=== PATIENT | female | born 1960 ===

== ENCOUNTER 2021-06-06 08:35 | Outpatient (CLI) | payer OTHER | END 2021-06-06 08:36 | disposition home or self-care (01) | LOC: BICMRI 08:35 | PROVIDERS: ATTEND Family Medicine | DX: R29.898 Other symptoms and signs involving the musculoskeletal system (principal); R20.2 Paresthesia of skin; M51.36 Other intervertebral disc degeneration, lumbar region; M48.061 Spinal stenosis, lumbar region without neurogenic claudication; Z91.81 History of falling | CPT/HCPCS: 72148 ==